=== PATIENT | female | born 1980 ===

== ENCOUNTER 2016-12-25 01:13 | Emergency (ER) | payer OTHER ==
[2016-12-25 01:13] VITALS: BMI 23.8
[2016-12-25 01:34] VITALS: RESP 16
[2016-12-25] MEDS ORDERED: Sodium Chloride 0.9% 1,000 ML IV ONE (02:03)
--- NOTE | 2016-12-25 02:05 | C.PDOC ---
History Of Present Illness 36 yo female, no prior hx, presents with 1 week of epigastric abdominal pain, associated with nausea, no vomiting, no diarrhea, no other complaints. Time Seen by Provider: 12/25/16 02:01 Chief Complaint (Nursing): Abdominal Pain Past Medical History Reviewed: Historical Data, Nursing Documentation, Vital Signs Vital Signs: Last Vital Signs Temp 98.3 F 12/25/16 01:29 Pulse 88 12/25/16 01:29 Resp 16 12/25/16 01:29 BP 148/96 H 12/25/16 01:29 Pulse Ox 98 12/25/16 02:05 - Medical History PMH: Anxiety, Back Problems (cspine) Surgical History: Appendectomy, Family History: States: Unknown Family Hx - Social History Hx Tobacco Use: No Hx Alcohol Use: Yes Hx Substance Use: No - Immunization History Hx Tetanus Toxoid Vaccination: No Hx Influenza Vaccination: No Hx Pneumococcal Vaccination: No Review Of Systems Gastrointestinal: Positive for: Nausea, Abdominal Pain. Negative for: Vomiting Physical Exam - Physical Exam Appears: Well, No Acute Distress Skin: Normal Color, Warm, Dry Eye(s): bilateral: Normal Inspection, PERRL, EOMI Nose: Normal Throat: Normal Neck: Normal Cardiovascular: Rhythm Regular Respiratory: Normal Breath Sounds Gastrointestinal/Abdominal: Normal Exam, Soft, Tenderness (epigastric), No Guarding, No Rebound Back: Normal Inspection Extremity: Normal ROM ED Course And Treatment - Laboratory Results Result Diagrams: 12/25/16 02:14 12/25/16 02:14 O2 Sat by Pulse Oximetry: 98 Medical Decision Making Medical Decision Making: r/o gastritis, pancreatitis, pud- labs imaging pending. pt reassesed. abd soft no ttp, bedside us shows no cholcytitis. labs unremarkable. given outpt f/u Disposition - Disposition Referrals: Samy Francis MD [Staff Provider] - Disposition: HOME/ ROUTINE Disposition Time: 02:59 Condition: STABLE Additional Instructions: please follow up with your doctor. return to er with worsening symptoms or concerns. please see specialist. Prescriptions: Famotidine [Pepcid] 20 mg PO DAILY #20 tab Instructions: Abdominal Pain (ED) - Clinical Impression Clinical Impression: Abdominal pain
[2016-12-25] MEDS ORDERED: Sodium Chloride 0.9% 1,000 ML ONE (02:16)
[2016-12-25 02:17] LABS: BASO % 0.3 % (0.0-2.0); EOS # 0.1 K/uL (0.0-0.7); EOS % 0.9 % (0.0-4.0); HEMATOCRIT 36.4 % (34.0-47.0); LYMPH # 2.1 K/uL (1.0-4.3); LYMPH % 32.2 % (20.0-40.0); MEAN CELL VOLUME 88.3 fL (81.0-99.0); MEAN CORPUSCULAR HEMOGLOBIN 29.2 pg (27.0-31.0); MEAN CORPUSCULAR HGB CONC 33.1 g/dL (33.0-37.0); MEAN PLATELET VOLUME 8.5 fL (7.2-11.7); MONO # 0.4 K/uL (0.0-0.8); MONO % 6.3 % (0.0-10.0); RED CELL DISTRIBUTION WIDTH 14.1 % (11.5-14.5); WHITE BLOOD COUNT 6.4 K/uL (4.8-10.8)
[2016-12-25 02:29] LABS: CHLORIDE 102 mmol/L (98-107)
[2016-12-25 02:30] LABS: POTASSIUM 3.8 mmol/L (3.6-5.2); SODIUM 138 mmol/L (132-148)
[2016-12-25 02:32] LABS: ALB/GLOB RATIO 1.1 (1.0-2.1); AST/SGOT 17 U/L (14-36); BILIRUBIN,TOTAL 0.4 mg/dL (0.2-1.3); CARBON DIOXIDE 24 mmol/L (22-30); GFR AFRICAN-AMERICAN > 60; TOTAL PROTEIN 7.5 g/dL (6.3-8.3)
[2016-12-25 02:33] LABS: ALKALINE PHOSPHATASE 44 U/L (38-126); ALT/SGPT 20 U/L (9-52); BLOOD UREA NITROGEN 13 mg/dL (7-17); CALCIUM 8.5 mg/dl (8.6-10.4); GLUCOSE,RANDOM 110 mg/dL (65-105)
[2016-12-25 02:54] LABS: URINE BACTERIA RARE (<OCC); URINE BILIRUBIN NEGATIVE (NEGATIVE); URINE BLOOD NEGATIVE (NEGATIVE); URINE COLOR Straw (YELLOW); URINE GLUCOSE (UA) NORMAL (Normal); URINE KETONE NEGATIVE (NEGATIVE); URINE LEUKOCYTE ESTERASE NEG Leu/uL (Negative); URINE PROTEIN NEGATIVE (NEGATIVE); URINE UROBILINOGEN NORMAL mg/dL (0.2-1.0); WBC URINE < 1 /hpf (0-5)
[2016-12-25 03:22] VITALS: BP 134/90; PULSE 95; TEMP 98.7; O2SAT 100
== END 2016-12-25 04:12 | disposition home or self-care (01) ==
LOC: C.ER 01:13
DX: R10.13 Epigastric pain (principal)
CPT/HCPCS: 80053; 81001; 83690; 84703; 85025; 85610; 85730; 96361; 96374; 96375; 99284; C9113; J2405; J7040

== ENCOUNTER 2018-04-13 05:14 | Emergency (ER) | payer OTHER ==
[2018-04-13 05:15] VITALS: BMI 23.8
--- NOTE | 2018-04-13 06:06 | C.PDOC ---
History Of Present Illness <Sandi Stone - Last Filed: 04/13/18 06:56> <Savita Escalante - Last Filed: 04/13/18 08:15> 37 year old female presents to the ED for evaluation of palpitations. Patient reports she woke up today at 04:00 feeling like her heart was racing and got a little scared. Patient reports she used to have palpitations in the past but was told it was due to her neck pain. Patient also reports she has noticed she has been losing weight and feel cold. Patient denies fever, chills, nausea, vomit, CP, SOB, weakness, numbness. (Sandi Stone) History Per: Patient History/Exam Limitations: no limitations Onset/Duration Of Symptoms: Hrs Current Symptoms Are (Timing): Still Present Quality: "Pain" Exacerbating Factors: None Recent travel outside of the [place]: No Additional History Per: Patient <Sandi Stone - Last Filed: 04/13/18 06:56> <Savita Escalante - Last Filed: 04/13/18 08:15> Chief Complaint (Nursing): Palpitations Past Medical History Reviewed: Historical Data, Nursing Documentation, Vital Signs - Medical History PMH: Anxiety, Back Problems (cspine), HTN Surgical History: Appendectomy, Family History: States: Unknown Family Hx - Social History Hx Tobacco Use: No Hx Alcohol Use: Yes Hx Substance Use: No - Immunization History Hx Tetanus Toxoid Vaccination: No Hx Influenza Vaccination: No Hx Pneumococcal Vaccination: No <Sandi Stone - Last Filed: 04/13/18 06:56> Vital Signs: Last Vital Signs Temp Pulse 86 04/13/18 07:41 Resp 18 04/13/18 07:41 BP 112/76 04/13/18 07:41 Pulse Ox 98 04/13/18 07:41 Review Of Systems Constitutional: Negative for: Fever, Chills Cardiovascular: Positive for: Palpitations. Negative for: Chest Pain Respiratory: Negative for: Cough, Shortness of Breath Gastrointestinal: Negative for: Nausea, Vomiting, Abdominal Pain Skin: Negative for: Rash <Sandi Stone - Last Filed: 04/13/18 06:56> Physical Exam - Physical Exam Appears: Non-toxic, No Acute Distress Skin: Normal Color, Warm, Dry Head: Atraumatic, Normacephalic Eye(s): bilateral: Normal Inspection Oral Mucosa: Moist Neck: Normal ROM, Supple Chest: Symmetrical Cardiovascular: Rhythm Regular Respiratory: Normal Breath Sounds, No Rales, No Rhonchi, No Wheezing Gastrointestinal/Abdominal: Soft, No Tenderness, No Guarding, No Rebound Extremity: Normal ROM, No Tenderness, No Swelling Neurological/Psych: Oriented x3, Normal Speech Gait: Steady <Sandi Stone - Last Filed: 04/13/18 06:56> ED Course And Treatment - Laboratory Results Result Diagrams: 04/13/18 06:07 04/13/18 06:07 O2 Sat by Pulse Oximetry: 100 (ON RA) Pulse Ox Interpretation: Normal <Sandi Stone - Last Filed: 04/13/18 06:56> - Laboratory Results Result Diagrams: 04/13/18 06:07 04/13/18 06:07 <Savita Escalante - Last Filed: 04/13/18 08:15> Medical Decision Making <Sandi Stone - Last Filed: 04/13/18 06:56> <Savita Escalante - Last Filed: 04/13/18 08:15> Medical Decision Making: Impression: palpitations Plan: * EKG * Labs * Normal, D-Dimer and tox screen Awaiting results of TSH.Pt can be safwely discharged after those results if normal (Sandi Stone) Disposition <Sandi Stone - Last Filed: 04/13/18 06:56> Counseled Patient/Family Regarding: Studies Performed, Diagnosis, Need For Followup - Disposition Disposition Time: 08:15 <Savita Escalante - Last Filed: 04/13/18 08:15> - Disposition Referrals: Lexie Mckeon MD [Staff Provider] - Disposition: HOME/ ROUTINE Condition: STABLE Additional Instructions: FOLLOW UP WITH YOUR DOCTOR IN 1-2 DAYS RETURN TO EMERGENCY ROOM IF SYMPTOMS WORSEN SEGUIMIENTO CON CRAIG MDICO EN 1-2 KWOK REGRESE AL TOBY DE EMERGENCIA SI LOS SNTOMAS EMPEORAN Instructions: Palpitations (DC) Forms: [email or web address] (Botswanan) Print Language: NEPALI - Clinical Impression Clinical Impression: Palpitations, TSH elevation - Scribe Statement The provider has reviewed the documentation as recorded by the Scribe <Sandi Stone - Last Filed: 04/13/18 06:56> <Savita Escalante - Last Filed: 04/13/18 08:15> - Scribe Statement Hiren Michelle All medical record entries made by the Scribe were at my direction and personally dictated by me. I have reviewed the chart and agree that the record accurately reflects my personal performance of the history, physical exam, medical decision making, and the department course for this patient. I have also personally directed, reviewed, and agree with the discharge instructions and disposition. (Sandi Stone) Physician Patient Turnover Patient Signed Over To: Vi Rich <Sandi Stone - Last Filed: 04/13/18 06:56>
[2018-04-13 06:09] LABS: BASO % 0.4 % (0.0-2.0); EOS # 0.1 K/uL (0.0-0.7); EOS % 2.4 % (0.0-4.0); HEMOGLOBIN 12.1 g/dL (11.0-16.0); LYMPH # 2.1 K/uL (1.0-4.3); LYMPH % 36.3 % (20.0-40.0); MEAN CELL VOLUME 88.3 fL (81.0-99.0); MEAN CORPUSCULAR HEMOGLOBIN 29.4 pg (27.0-31.0); MEAN CORPUSCULAR HGB CONC 33.3 g/dL (33.0-37.0); MEAN PLATELET VOLUME 8.3 fL (7.2-11.7); MONO # 0.3 K/uL (0.0-0.8); MONO % 5.6 % (0.0-10.0); NEUT # 3.1 K/uL (1.8-7.0); NEUT % 55.3 % (50.0-75.0); NRBC % 0.1 % (0.0-2.0); RBC 4.13 Mil/uL (3.80-5.20); RED CELL DISTRIBUTION WIDTH 14.7 % (11.5-14.5); WHITE BLOOD COUNT 5.7 K/uL (4.8-10.8)
[2018-04-13 06:27] LABS: ALB/GLOB RATIO 1.5 (1.0-2.1); ALBUMIN 4.4 g/dL (3.5-5.0); ALT/SGPT 18 U/L (9-52); AST/SGOT 24 U/L (14-36); BLOOD UREA NITROGEN 12 mg/dL (7-17); GFR AFRICAN-AMERICAN > 60; GFR NON-AFRICAN AMERICAN > 60
[2018-04-13 06:30] LABS: BARBITURATES, UR NEGATIVE (NEGATIVE); BENZODIAZEPINES, UR NEGATIVE (NEGATIVE); OPIATES, UR NEGATIVE (NEGATIVE); PHENCYCLIDINE, UR NEGATIVE (NEGATIVE)
[2018-04-13 07:14] VITALS: RESP 18
[2018-04-13 07:41] VITALS: BP 112/76; PULSE 86; O2SAT 98
--- NOTE | 2018-04-14 21:27 | CARD ---
APPROVED REPORT EKG Measurement Heart [id number] <Conclusion> Sinus tachycardia Possible Left atrial enlargement Borderline ECG
== END 2018-04-13 08:22 | disposition home or self-care (01) ==
LOC: C.ER 05:14
DX: R00.2 Palpitations (principal); R94.6 Abnormal results of thyroid function studies

== ENCOUNTER 2019-02-19 02:25 | Emergency (ER) | payer OTHER ==
[2019-02-19 02:26] VITALS: BMI 23.8
[2019-02-19 03:06] LABS: BASO % 0.5 % (0.0-2.0); EOS # 0.1 K/uL (0.0-0.7); HEMOGLOBIN 12.1 g/dL (11.0-16.0); LYMPH # 2.3 K/uL (1.0-4.3); LYMPH % 37.8 % (20.0-40.0); MEAN CELL VOLUME 88.3 fL (81.0-99.0); MEAN CORPUSCULAR HEMOGLOBIN 29.8 pg (27.0-31.0); MEAN CORPUSCULAR HGB CONC 33.7 g/dL (33.0-37.0); MEAN PLATELET VOLUME 8.6 fL (7.2-11.7); MONO # 0.4 K/uL (0.0-0.8); MONO % 7.4 % (0.0-10.0); NEUT # 3.1 K/uL (1.8-7.0); NEUT % 52.3 % (50.0-75.0); NRBC % 0.1 % (0.0-2.0); RBC 4.06 Mil/uL (3.80-5.20); RED CELL DISTRIBUTION WIDTH 14.1 % (11.5-14.5)
[2019-02-19 03:17] LABS: ALB/GLOB RATIO 1.3 (1.0-2.1); ALBUMIN 4.3 g/dL (3.5-5.0); ALT/SGPT 21 U/L (9-52); AST/SGOT 22 U/L (14-36); BLOOD UREA NITROGEN 10 mg/dL (7-17); GFR NON-AFRICAN AMERICAN > 60
--- NOTE | 2019-02-19 03:31 | C.PDOC ---
History Of Present Illness 38 year old female with Hx of HTN and anxiety presents with palpitation that woke her up from sleep. Since last night patient reports a tightness to the left upper chest, breast, and arm area. Patient took tylenol with some relief. She notes earlier today she felt some epigastric abdominal bloating which progressed to palpitations a few hours [employer]. Patient states had a large BM [employer] and now feels better has Hx of similar symptoms in the past. Denies recent URI, SOB, vomiting, or back pain. Also c/o of exccerbation of her chronic neck pain. Time Seen by Provider: 02/19/19 02:50 Chief Complaint (Nursing): Palpitations History Per: Patient History/Exam Limitations: no limitations Onset/Duration Of Symptoms: Hrs Current Symptoms Are (Timing): Still Present Associated Symptoms: Other (Tightness to left upper chest/breast/arm area) Exacerbating Factor(s): Pos: None Recent travel outside of the [place]: No Past Medical History Reviewed: Historical Data, Nursing Documentation, Vital Signs Vital Signs: Last Vital Signs Temp 98.9 F 02/19/19 02:42 Pulse 114 H 02/19/19 02:45 Resp 16 02/19/19 02:42 BP 142/98 H 02/19/19 02:42 Pulse Ox 100 02/19/19 02:42 Primary Care Provider: Lexie Mckeon - Medical History PMH: Anxiety, Back Problems (cspine), HTN Denies: Chronic Kidney Disease Surgical History: Appendectomy, Family History: States: Unknown Family Hx - Social History Hx Tobacco Use: No Hx Alcohol Use: Yes Hx Substance Use: No - Immunization History Hx Tetanus Toxoid Vaccination: No Hx Influenza Vaccination: No Hx Pneumococcal Vaccination: No Review Of Systems Constitutional: Negative for: Fever, Chills Cardiovascular: Positive for: Palpitations Respiratory: Negative for: Shortness of Breath Gastrointestinal: Negative for: Vomiting Musculoskeletal: Positive for: Other (Tightness to left upper chest/breast/arm area). Negative for: Back Pain Neurological: Negative for: Weakness, Numbness Physical Exam - Physical Exam Appears: Well, Non-toxic, No Acute Distress Skin: Normal Color, Warm Head: Atraumatic, Normacephalic Eye(s): bilateral: Normal Inspection Oral Mucosa: Moist Neck: Normal, No Midline Cervical Tenderness, No Paracervical Tenderness, Supple Chest: No Deformity, Tenderness (Minimal left sided) Cardiovascular: Rhythm Regular Respiratory: Normal Breath Sounds, No Rales, No Rhonchi, No Wheezing Gastrointestinal/Abdominal: Soft, No Tenderness Extremity: Normal ROM (x4) Neurological/Psych: Oriented x3, Normal Speech ED Course And Treatment - Laboratory Results Result Diagrams: 02/19/19 03:02 02/19/19 03:02 Lab Results: Troponin I < 0.0120 ng/mL (0.00-0.120) 02/19/19 03:02 Total Bilirubin 0.2 mg/dL (0.2-1.3) 02/19/19 03:02 AST 22 U/L (14-36) 02/19/19 03:02 ALT 21 U/L (9-52) 02/19/19 03:02 Alkaline Phosphatase 54 U/L (38-126) 02/19/19 03:02 Total Protein 7.7 g/dL (6.3-8.3) 02/19/19 03:02 Albumin 4.3 g/dL (3.5-5.0) 02/19/19 03:02 Globulin 3.4 gm/dL (2.2-3.9) 02/19/19 03:02 Albumin/Globulin Ratio 1.3 (1.0-2.1) 02/19/19 03:02 ECG: Interpreted By Me, Viewed By Me ECG Rhythm: Sinus Tachycardia ECG Interpretation: Normal Rate From EC O2 Sat by Pulse Oximetry: 100 (Room air) Progress Note: EKG and blood work ordered. Toradol administered. Labs and EKG reviewedand d/w pt. Pt in NAD and reports pain improvement. No longer tachycardic. Advised PMD f/u Reevaluation Time: 04:26 Reassessment Condition: Improved Disposition Counseled Patient/Family Regarding: Diagnosis, Need For Followup, Rx Given - Disposition Referrals: Lexie Mckeon MD [Staff Provider] - Disposition: HOME/ ROUTINE Disposition Time: 04:20 Condition: STABLE Additional Instructions: Please follow up with PMD Take medications for pain as needed Return to ER if worse Prescriptions: Ibuprofen [Motrin] 600 mg PO Q6H #30 tab Instructions: Costochondritis (DC), Palpitations (DC) Forms: [employer] (Jordanian) - Clinical Impression Clinical Impression: Chest wall pain, Palpitations, Chronic neck pain - PA / [employer] / Resident Statement MD/DO has reviewed & agrees with the documentation as recorded. - Scribe Statement The provider has reviewed the documentation as recorded by the Scribrosanna Schneider All medical record entries made by the Lilyibrosanna were at my direction and person ally dictated by me. I have reviewed the chart and agree that the record accurately reflects my personal performance of the history, physical exam, medical decision making, and the department course for this patient. I have also personally directed, reviewed, and agree with the discharge instructions and disposition.
[2019-02-19 04:21] VITALS: O2SAT 100
[2019-02-19 04:56] VITALS: BP 110/65; PULSE 88; RESP 20; TEMP 98
--- NOTE | 2019-02-21 14:08 | CARD ---
APPROVED REPORT Date of service: 02/19/2019 EKG Measurement Heart [id number] <Conclusion> Sinus tachycardia Possible Left atrial enlargement Borderline ECG
== END 2019-02-19 04:57 | disposition home or self-care (01) ==
LOC: C.ER 02:25
DX: R00.2 Palpitations (principal); R07.89 Other chest pain; G89.29 Other chronic pain; M54.2 Cervicalgia
CPT/HCPCS: 80053; 84484; 85025; 93005; 96374; 99285; J1885